=== PATIENT | female | born 1985 | race Caucasian/White ===

== ENCOUNTER 2017-08-26 10:48 | Emergency (ER) | payer MEDICAID ==
--- NOTE | 2017-08-26 11:37 | ED Physician Documentation ---
PD HPI HEADACHE - Stated complaint Stated Complaint: EYE DILATED/DIZZY - Chief complaint Chief Complaint: Neuro - History obtained from History obtained from: Patient - History of Present Illness Timing - onset: Yesterday Timing - onset during: Rest (gradual onset of feeling off balance, almost fell with getting up fast. Normal vision but today noted her rigth pupil looked more dilated. Has mild frontal headache. No prior similar. No injury. No history of migraines.) Timing - details: Gradual onset, Still present Worst headache ever?: No: Worst headache ever? Location: Front, Right Quality: Throbbing, Other (feeling pressure right frontal area) Associated symptoms: No: Fever, Stiff neck, Nausea, Vomiting, Weakness, Numbness , Eye pain, Vision changes Worsened by: No: Light, Noise Contributing factors: Recent illness (had URI congestion about 1-2 weeks ago and was mostly over it, with just some mild nasal congestion still.) Similar symptoms before: Has not had sx before Recently seen: Not recently seen Review of Systems Constitutional: denies: Fever, Chills, Myalgias Eyes: denies: Loss of vision, Decreased vision, Photophobia, Discharge, Irritation Ears: denies: Loss of hearing, Ear pain, Drainage/discharge, Tinnitus/ringing Nose: reports: Congestion (about a week or two ago, with URI and has some mild congestion still.). denies: Rhinorrhea / runny nose Throat: denies: Sore throat Respiratory: denies: Cough GI: denies: Abdominal Pain, Nausea, Vomiting, Diarrhea : denies: Dysuria, Frequency Neurologic: denies: Focal weakness, Numbness, Difficulty speaking, Near syncope , Altered mental status Psychiatric: denies: Insomnia Endocrine: denies: Weight loss Immunocompromised: denies: Immunocompromised PD PAST MEDICAL HISTORY - Past Medical History Past Medical History: Yes Cardiovascular: None Respiratory: None Neuro: None Endocrine/Autoimmune: None Other Past Medical History: pre eclampsia--HELLP syndrome. - Past Surgical History Past Surgical History: Yes /[employer]: section - Present Medications Home Medications: Ambulatory Orders Medication Instructions Recorded Confirmed Amoxicillin 500 mg PO TID #15 capsule 08/26/17 Dexamethasone [Decadron] 4 mg PO DAILY #5 tablet 08/26/17 Meclizine [Antivert] 25 mg PO Q6H PRN #30 tablet 08/26/17 - Allergies Allergies/Adverse Reactions: Allergies Allergy/AdvReac Type Severity Reaction Status Date / Time No Known Drug Allergies Allergy Verified 08/26/17 10:53 - Social History Does the pt smoke?: Yes Smoking Status: Current every day smoker Does the pt drink ETOH?: No Does the pt have substance abuse?: Yes Substance Use and Type: Marijuana - Immunizations Immunizations are current?: Yes - POLST Patient has POLST: No PD ED PE NORMAL - Vitals Vital signs reviewed: Yes - General General: Alert and oriented X 3, No acute distress, Well developed/nourished - HEENT HEENT: EOMI (without pain nor diplopia. No nystagmus noted. ). No: PERRL (both are reactive equally and normal quadrant vision. The right eye does appear 1-2 mm larger than the left and patient says she has not ever noted that before. Fundi are normal. ) - Neck Neck: Supple, no meningeal sign, No adenopathy - Cardiac Cardiac: RRR, No murmur - Respiratory Respiratory: Clear bilaterally - Derm Derm: Normal color, Warm and dry, No rash - Extremities Extremities: No deformity, No tenderness to palpate, Normal ROM s pain - Neuro Neuro: Alert and oriented X 3, enrollment manager 2-12 intact, No motor deficit, No sensory deficit, Normal speech, Other (Romberg and gait testing appeared normal. ) Eye Opening: Spontaneous Motor: Obeys Commands Verbal: Oriented GCS Score: 15 - Psych Psych: Normal mood, Normal affect Results - Vitals Vitals: Oxygen O2 Source Room air - Rads (name of study) brain MRI Radiology: Prelim report reviewed (normal) PD MEDICAL DECISION MAKING - ED course Complexity details: reviewed results (MRI is normal, so excludes many bad things. Presume it is inner ear then. Also consider migraine/vascular but no h/ o migraines. ), considered differential, d/w patient Departure - Departure Disposition: 01 Home, Self Care Clinical Impression: Balance problem due to labyrinthine dysfunction Qualifiers: Laterality: unspecified laterality Qualified Code(s): H83.2X9 - Labyrinthine dysfunction, unspecified ear Condition: Stable Record reviewed to determine appropriate education?: Yes Instructions: ED Vertigo Unspecified Prescriptions: Amoxicillin 500 mg PO TID #15 capsule Dexamethasone [Decadron] 4 mg PO DAILY #5 tablet Meclizine [Antivert] 25 mg PO Q6H PRN #30 tablet PRN Reason: Vertigo Comments: Your MRI appears normal. So no signs of swelling, bleeding, tumors, stroke, MS , abscess. I presume then your feeling off balance and some headache related to sinus her inner ear problems. This typically is viral but there may be some infection bacterial component. Will treat with meclizine for the dizziness and off balance, Decadron 4 the swelling presumed in the inner ear and amoxicillin for potential bacterial infection. Recheck if not improved over the next couple days. Avoid ladders and dangerous places if you are feeling off balance. Discharge Date/Time: 08/26/17 14:36
[2017-08-26] MEDS ORDERED: DEXAMETHASONE 10 MG/ML VIAL PO STA (12:10)
[2017-08-26] MEDS ORDERED: MECLIZINE 12.5 MG TABLET PO STA (12:10)
[2017-08-26] MEDS ORDERED: DEXAMETHASONE 10 MG/ML VIAL ONE ×2 (12:20→15:58)
[2017-08-26] MEDS ORDERED: CHERRY SYRUP 10 ML UDC PO ONE (12:21)
[2017-08-26] MEDS ORDERED: MECLIZINE 12.5 MG TABLET PO ONE (12:21)
--- NOTE | 2017-08-26 14:06 | MRI Preliminary Report ---
Exam: MRI BRAIN W/O IMPRESSION: 1.Normal noncontrast MRI of the brain. No acute abnormality. 2. Incidental note is made of a partially empty sella turcica. [facility] SITE ID: [id number]
--- NOTE | 2017-08-26 14:09 | MRI Report ---
EXAM: MRI BRAIN WITHOUT CONTRAST EXAM DATE: 08/26/2017 01:37 PM. CLINICAL HISTORY: Off balance and right pupil dilated today. Symptoms for 2 days. COMPARISON: None. TECHNIQUE: Multiplanar, multisequence T1-weighted and fluid-sensitive MR sequences of the brain were performed. Sequences optimized for routine evaluation. Other: None. IV Contrast: None. FINDINGS: Brain Volume: Normal for age. Parenchyma/Dura: No mass, acute infarct or hemorrhage. No white matter lesions identified. Ventricles/Cisterns: No hydrocephalus. No abnormal extra-axial fluid collection or hemorrhage. Orbits: Symmetric and unremarkable. Sella Turcica: Note is made of a partially empty sella turcica. The pituitary gland, cavernous sinuse s, suprasellar cistern and optic chiasm are unremarkable. IAC: Symmetric and unremarkable. Vasculature: Normal signal flow void is seen in the major arterial structures at the skull base. Sinuses: No acute appearing sinus disease. Bones: No focal pathologic appearing marrow signal changes. Other: None. IMPRESSION: 1.Normal noncontrast MRI of the brain. No acute abnormality. 2. Incidental note is made of a partially empty sella turcica. [facility] Referring Provider Line: [phone] SITE ID: [id number]
[2017-08-26 14:10] VITALS: BP 128/68
[2017-08-26] MEDS ORDERED: ACETAMINOPHEN 1,000 MG/100 ML 100 ML IV ONE (15:59)
== END 2017-08-26 14:36 | disposition home or self-care (01) ==
LOC: ED 10:48
DX: H83.2X9 Labyrinthine dysfunction, unspecified ear (principal); F17.200 Nicotine dependence, unspecified, uncomplicated
CPT/HCPCS: 70551; 99283; A9270; J0131